=== PATIENT | female | born 1985 | race Caucasian/White ===

== ENCOUNTER 2021-01-10 12:40 | Observation (INO) | payer MEDICAID, SELFPAY ==
[~2021-01-10] VITALS: Ht 160 cm; Wt 65.8 kg
== END 2021-01-10 13:10 | disposition home or self-care (01) ==
LOC: SPU 12:40
PROVIDERS: ADMIT Obstetrics & Gynecology; ATTEND Obstetrics & Gynecology
DX: O21.2 Late vomiting of pregnancy (principal); O26.892 Other specified pregnancy related conditions, second trimester; R42 Dizziness and giddiness; Z3A.23 23 weeks gestation of pregnancy
CPT/HCPCS: G0378